=== PATIENT | male | born 1980 | race Caucasian/White ===

== ENCOUNTER 2021-09-17 14:39 | Emergency (ER) | payer BC ==
[2021-09-17] MEDS ORDERED: Sodium Chloride 0.9% 2.5 ML Syringe FLUSH PRN (14:41)
[2021-09-17] MEDS ORDERED: Sodium Chloride 0.9% 10 ML Syringe FLUSH PRN (14:41)
[2021-09-17] MEDS ORDERED: Aspirin 81 MG Tab.Chew PO ONE (14:41)
[2021-09-17] MEDS ORDERED: Sodium Chloride 0.9% 1,000 ML IV ONE (14:41)
[2021-09-17] MEDS ORDERED: Nitroglycerin 0.4 MG Tab.SL SL PRN (14:41)
[2021-09-17] MEDS ORDERED: Adenosine 6 MG/2 ML SDV IVPUSH ONE (14:43)
[2021-09-17] MEDS ORDERED: Adenosine 6 MG/2 ML SDV ONE (14:44)
--- NOTE | 2021-09-17 14:52 | EDM.PDOC ---
<Glenn Grijalva - Last Filed: 09/17/21 19:22> ED HPI GENERAL MEDICAL PROBLEM - General Chief Complaint: Chest Pain Stated Complaint: CHEST PAIN Time Seen by Provider: 09/17/21 14:46 - History of Present Illness INITIAL COMMENTS - FREE TEXT/NARRATIVE: History of present illness: [] Patient reports 2 hours of chest pain. Tender right side of his chest radiates to his shoulder. Associated with shortness of breath. Its worse when he breathes. He is a non-smoker not diabetic but his family is positive for history of heart attacks with young people in their 50s. The pain is moderately severe radiates to the right arm. Review of systems: As per history of present illness and below otherwise all systems reviewed and negative. Past medical history: As per history of present illness and as reviewed below otherwise noncontributory. Surgical history: As per history of present illness and as reviewed below otherwise noncontributory. Social history: No reported history of drug or alcohol abuse. Family history: As per history of present illness and as reviewed below otherwise noncontributory. Physical exam: Constitutional - well developed, well-nourished and in no acute distress HEENT - normocephalic, no evidence of trauma - external nose and mouth normal - no mass in neck and no JVD - mucosae moist EYES - full EOM, PERRL, no icterus - no evidence of inflammation, injection, or drainage Respiratory - no respiratory distress, equal bilateral expansion, lungs clear to auscultation and no abnormal lung sounds Cardiovascular - Regular Rhythm with S1 and S2 appreciated and no murmur, gallop or rub. GI - abdomen soft without distension or organomegaly - normal bowel sounds - no guard or rebound Musculoskeletal no gross deformity of long bones or joints - no tenderness, swelling or edema Neurologic - Alert and oriented times four - CN II-XII grossly intact - motor sensory and coordination symmetrically normal Psychiatric - appropriate mood and affect with normal thought content Hematologic - No petechiae or purpura - mucosa appropriate color and sclera not pale - normal nail bed color and refill Integument - no rash or evidence of trauma - normal turgor Diagnostics: [] Therapeutics: [] Impression: [] Plan: [] Definitive disposition and diagnosis as appropriate pending reevaluation and review of above. Chest Pain Score (Numeric/FACES): 7 - Related Data Allergies Allergy/AdvReac Type Severity Reaction Status Date / Time No Known Allergies Allergy Verified 09/17/21 14:53 Home Meds: Home Meds atenoloL [Atenolol] 25 mg PO DAILY #30 tablet 09/17/21 [Rx] ED ROS GENERAL - Review of Systems Review Of Systems: Comprehensive ROS is negative, except as noted in HPI. ED EXAM, GENERAL - Physical Exam Exam: See Below Free Text/Narrative:: My physical exam is in the HPI #1 Interpretation EKG Interpretation Comments: EKG performed 09/17/2021 at 2:38 PM shows SVT with ventricular premature complexes. Rate is 209 TX intervals 112 QT duration [address] changes consistent with rate related ischemia. Impression SVT with rate related ischemia #2 Interpretation EKG Interpretation Comments: EKG #2 was done 09/17/2021 at 2:47 PM. It shows a sinus rhythm with heart rate 92 TX 126 QT duration 445 [place] XII. QRS is normal but ST is depressed in the lateral limb leads as well as lead to V2 V3 and V4 V5 V6. This EKG appeared to show some ischemia or possible posterior wall injury. It was faxed to Dr. Zheng and Rowan who looked at it and said he most likely felt this was rate related ischemia and would not require the patient to be transferred emergently as a STEMI in the posterior wall. #3 Interpretation EKG Interpretation Comments: EKG #3 done 09/17/2021 at 5:52 PM shows accelerated junctional rhythm according to the computer but the P waves are there and artifact makes it difficult to be determined. I am reading this as a sinus rhythm heart rate 74 QT duration [address] changes that were present on the second EKG after cardioversion medically are no longer present. Impression resolving demand ischemia. Course - Re-Assessments/Exams Free Text/Narrative Re-Assessment/Exam: 09/17/21 14:52 Patient was recognized to be in SVT based on a regular rhythm with rapid heart rate. Adenosine 6 mg was pushed with rapid flush and elevation of the right arm. He slowed to sinus rhythm. At the moment that we push that he felt terrible but right away he felt better. 09/17/21 15:04 Patient had no chest pain but the postconversion EKG look like a possible posterior wall [place]. The EKG was sent to Dr. Geller in [place] and he agreed it was rate related ischemia and said that if the enzymes are slightly elevated even if they went up a little we should watch him overnight here. If they are not elevated and do not go up we could send him home and have an outpatient stress test next week. 09/17/21 15:09 Departure - Departure Disposition: DC/Tfer to Acute Hospital 02 Condition: Good Clinical Impression: SVT (supraventricular tachycardia) - Discharge Information Prescriptions: atenoloL [Atenolol] 25 mg PO DAILY #30 tablet Referrals: Loren De NP [Primary Care Provider] - John Geller MD [Ordering Only Provider] - Forms: ED Department Discharge <Kade Peguero - Last Filed: 09/17/21 20:36> Course - Vital Signs Last Recorded V/S: Last Vital Signs Temp 98.5 F 09/17/21 19:39 Pulse 71 09/17/21 19:39 Resp 18 09/17/21 19:39 BP 127/87 09/17/21 19:39 Pulse Ox 98 09/17/21 19:39 - Orders/Labs/Meds Orders: Active Orders 24 hr Category Date Time Status Saline Lock Insert [OM.PC] Stat Oth 09/17/21 14:41 Ordered Labs: Laboratory Tests 09/17/21 09/17/21 09/17/21 Range/Units 14:44 14:44 14:55 WBC 10.99 (4.0-11.0) K/uL RBC 5.43 (4.50-5.90) M/uL Hgb 16.0 (13.0-17.0) g/dL Hct 46.4 (38.0-50.0) % MCV 85.5 (80.0-98.0) fL MCH 29.5 (27.0-32.0) pg MCHC 34.5 (31.0-37.0) g/dL RDW Std Deviation 41.4 (28.0-62.0) fl RDW Coeff of Daniel 14 (11.0-15.0) % Plt Count 301 (150-400) K/uL MPV 9.80 (7.40-12.00) fL Neut % (Auto) 65.6 (48.0-80.0) % Lymph % (Auto) 23.1 (16.0-40.0) % Brooks % (Auto) 7.8 (0.0-15.0) % Eos % (Auto) 3.2 (0.0-7.0) % Baso % (Auto) 0.3 (0.0-1.5) % Neut # (Auto) 7.2 H (1.4-5.7) K/uL Lymph # (Auto) 2.5 H (0.6-2.4) K/uL Brooks # (Auto) 0.9 H (0.0-0.8) K/uL Eos # (Auto) 0.4 (0.0-0.7) K/uL Baso # (Auto) 0.0 (0.0-0.1) K/uL Nucleated RBC % 0.0 /100WBC Nucleated RBCs # 0 K/uL INR APTT (18.6-31.3) SEC Sodium 140 (136-148) mmol/L Potassium 4.2 (3.5-5.1) mmol/L Chloride 103 (98-107) mmol/L Carbon Dioxide 26.8 (21.0-32.0) mmol/L BUN 9 (7.0-18.0) mg/dL Creatinine 1.1 (0.8-1.3) mg/dL Est Cr Clr Drug Dosing 95.08 mL/min Estimated GFR (MDRD) > 60.0 ml/min Glucose 175 H (74-106) mg/dL Calcium 9.5 (8.5-10.1) mg/dL Magnesium 2.2 (1.8-2.4) mg/dL Total Bilirubin 0.6 (0.2-1.0) mg/dL AST 18 (15-37) IU/L ALT 49 (14-63) IU/L Alkaline Phosphatase 86 (46-116) U/L Troponin I 0.085 H* (0.000-0.056) ng/mL Total Protein 7.6 (6.4-8.2) g/dL Albumin 3.7 (3.4-5.0) g/dL Globulin 3.9 (2.6-4.0) g/dL Albumin/Globulin Ratio 0.9 (0.9-1.6) Influenza Type A RNA NEGATIVE (NEGATIVE) Influenza Type B RNA NEGATIVE (NEGATIVE) SARS-CoV-2 RNA (GIOVANA) NEGATIVE (NEGATIVE) 09/17/21 09/17/21 Range/Units 18:08 19:27 WBC (4.0-11.0) K/uL RBC (4.50-5.90) M/uL Hgb (13.0-17.0) g/dL Hct (38.0-50.0) % MCV (80.0-98.0) fL MCH (27.0-32.0) pg MCHC (31.0-37.0) g/dL RDW Std Deviation (28.0-62.0) fl RDW Coeff of Daniel (11.0-15.0) % Plt Count (150-400) K/uL MPV (7.40-12.00) fL Neut % (Auto) (48.0-80.0) % Lymph % (Auto) (16.0-40.0) % Brooks % (Auto) (0.0-15.0) % Eos % (Auto) (0.0-7.0) % Baso % (Auto) (0.0-1.5) % Neut # (Auto) (1.4-5.7) K/uL Lymph # (Auto) (0.6-2.4) K/uL Brooks # (Auto) (0.0-0.8) K/uL Eos # (Auto) (0.0-0.7) K/uL Baso # (Auto) (0.0-0.1) K/uL Nucleated RBC % /100WBC Nucleated RBCs # K/uL INR 1.06 APTT 23.1 (18.6-31.3) SEC Sodium (136-148) mmol/L Potassium (3.5-5.1) mmol/L Chloride (98-107) mmol/L Carbon Dioxide (21.0-32.0) mmol/L BUN (7.0-18.0) mg/dL Creatinine (0.8-1.3) mg/dL Est Cr Clr Drug Dosing mL/min Estimated GFR (MDRD) ml/min Glucose (74-106) mg/dL Calcium (8.5-10.1) mg/dL Magnesium (1.8-2.4) mg/dL Total Bilirubin (0.2-1.0) mg/dL AST (15-37) IU/L ALT (14-63) IU/L Alkaline Phosphatase (46-116) U/L Troponin I 1.268 H* (0.000-0.056) ng/mL Total Protein (6.4-8.2) g/dL Albumin (3.4-5.0) g/dL Globulin (2.6-4.0) g/dL Albumin/Globulin Ratio (0.9-1.6) Influenza Type A RNA (NEGATIVE) Influenza Type B RNA (NEGATIVE) SARS-CoV-2 RNA (GIOVANA) (NEGATIVE) Meds: Medications Discontinued Medications Generic Name Dose Route Start Last Admin Trade Name Freq PRN Reason Stop Dose Admin Adenosine 6 mg 09/17/21 14:43 09/17/21 14:51 Adenosine 6 Mg/2 Ml Sdv IVPUSH 09/17/21 14:44 6 mg NOW ONE Administration Adenosine Confirm 09/17/21 14:44 09/17/21 15:18 Adenosine 6 Mg/2 Ml Sdv Administered 09/17/21 14:45 Not Given Dose 6 mg .ROUTE .STK-MED ONE Aspirin 324 mg 09/17/21 14:41 09/17/21 14:57 Aspirin 81 Mg Tab.Chew PO 09/17/21 14:42 Not Given ONETIME ONE Atenolol 25 mg 09/17/21 15:55 09/17/21 16:32 Atenolol 25 Mg Tab PO 09/17/21 15:56 25 mg ONETIME ONE Administration Heparin Sodium (Porcine) 4,000 units 09/17/21 19:17 09/17/21 19:31 Heparin Sodium 5,000 Units/Ml Vial IVPUSH 09/17/21 19:18 4,000 units .BOLUS ONE Administration Sodium Chloride 1,000 mls @ 125 mls/hr 09/17/21 14:41 09/17/21 14:51 Normal Saline IV 09/17/21 22:40 125 mls/hr STAT ONE Administration Heparin Sodium/Sodium Chloride 500 mls @ 31.026 mls/hr 09/17/21 19:30 09/17/21 19:31 Heparin 25,000 Units In 1/2 Ns 500 Ml IV 12 units/kg/hr TITRATE FLO 31.026 mls/hr Administration Protocol 12 UNITS/KG/HR Nitroglycerin 0.4 mg 09/17/21 14:41 Nitroglycerin 0.4 Mg Tab.Sl SL Q5M PRN Chest Pain Sodium Chloride 10 ml 09/17/21 14:41 09/17/21 14:52 Sodium Chloride 0.9% 10 Ml Syringe FLUSH 10 ml ASDIRECTED PRN Administration Keep Vein Open Sodium Chloride 2.5 ml 09/17/21 14:41 09/17/21 14:51 Sodium Chloride 0.9% 2.5 Ml Syringe FLUSH 2.5 ml ASDIRECTED PRN Administration Keep Vein Open - Re-Assessments/Exams Free Text/Narrative Re-Assessment/Exam: 09/17/21 20:35 Patient did have elevated troponin rising after 3-hr waiting period; Dr. Geller was reconsulted and recommends transfer to [place] for potential cardiac cath. Patient was agreeable to transfer and left in stable condition around 2030. Departure - Departure Time of Disposition: 20:35 Condition: Good Sepsis Event Note (ED) - Focused Exam Vital Signs: Vital Signs Temp Pulse Pulse Resp BP BP Pulse Ox 09/17/21 19:39 98.5 F 71 18 127/87 98 09/17/21 18:25 72 137/88 98 09/17/21 17:55 77 136/81 95 09/17/21 17:25 82 18 133/95 H 96 09/17/21 16:32 77 161/100 H 09/17/21 15:23 87 129/89 97 09/17/21 14:53 95 143/98 H 93 L 09/17/21 14:51 96.7 F L 210 H 20 142/94 H 95
[2021-09-17 15:18] LABS: BLOOD UREA NITROGEN,BUN 9 mg/dL (7.0-18.0); CARBON DIOXIDE,CO2 26.8 mmol/L (21.0-32.0); CHLORIDE,CL 103 mmol/L (98-107); GLUCOSE RANDOM 175 mg/dL (74-106); POTASSIUM,K 4.2 mmol/L (3.5-5.1); SODIUM,NA 140 mmol/L (136-148)
--- NOTE | 2021-09-17 15:25 | CR ---
INDICATION: Shortness of breath TECHNIQUE: Chest 1 view. COMPARISON: None FINDINGS: The heart is normal in size. The pulmonary vasculature is within normal limits. The lungs are clear. Bones are unremarkable. IMPRESSION: No acute process. Dictated by Tisha Chew MD @ 09/17/2021 3:23:32 PM (Electronically Signed)
[2021-09-17 15:42] LABS: CORONAVIRUS COVID-19 NAA NEGATIVE (NEGATIVE); INFLUENZA A NAA NEGATIVE (NEGATIVE); INFLUENZA B NAA NEGATIVE (NEGATIVE)
[2021-09-17] MEDS ORDERED: Atenolol 25 MG Tab PO ONE (15:55)
[2021-09-17] MEDS ORDERED: Heparin Sodium 5,000 Units/ML Vial IVPUSH ONE (19:17)
[2021-09-17] MEDS ORDERED: Heparin Sodium/0.45% NaCl 500 ML IV SCH (19:30)
== END 2021-09-17 20:28 ==
LOC: MW.ED 14:39
DX: I47.1 Supraventricular tachycardia (principal); Z20.822 Contact with and (suspected) exposure to COVID-19
CPT/HCPCS: 0240U; 36415; 71045; 80053; 83735; 84484; 85025; 85610; 85730; 93005; 96365; 96375; 99285; A9270; J0153; J1644; J7030